=== PATIENT | female | born 1960 | race Caucasian/White ===

== ENCOUNTER → 2024-02-05 | Outpatient (CLI) | payer BC ==
--- NOTE | 2024-02-05 15:14 | XR ---
Two-view right forearm, 3 view right elbow.. DATE: 02/05/2024. COMPARISON: None available. Clinical history: Bruising after fall last week. IMPRESSION: There is a tiny ossific density seen just anterior to the distal aspect of the distal humerus. This m ay represent a small fracture, radial donor site is not seen. No significant elbow joint effusion is otherwise noted. There is no significant soft tissue swelling.
== END | disposition home or self-care (01) ==
LOC: RADXRYALE 14:39
PROVIDERS: ATTEND Internal Medicine
DX: M89.8X2 Other specified disorders of bone, upper arm (principal); M25.521 Pain in right elbow; W19.XXXA Unspecified fall, initial encounter